=== PATIENT | female | born 1970 | race Caucasian/White ===

== ENCOUNTER 2023-01-18 12:14 | Emergency (ER) | payer OTHER, BC ==
[2023-01-18] MEDS ORDERED: Acetaminophen 500 MG TAB ONE (12:23)
== END 2023-01-18 13:14 | disposition home or self-care (01) ==
LOC: CSHERS 12:14
DX: S50.11XA Contusion of right forearm, initial encounter (principal); V89.2XXA Person injured in unspecified motor-vehicle accident, traffic, initial encounter
CPT/HCPCS: G0390